=== PATIENT | female | born 1985 | race Caucasian/White ===

== ENCOUNTER 2016-06-08 13:31 | Emergency (ER) | payer OTHER ==
[~2016-06-08 13:31] MED LIST: BACLOFEN10 MG PO; IBUPROFEN100 MG PO; LIORESAL TAB 1010 MG PO; NEURONTIN600 MG PO; NORCO 10-325 T1 EACH PO
== END 2016-06-08 15:30 | disposition home or self-care (01) ==
LOC: ER1 13:31
DX: S93.612A Sprain of tarsal ligament of left foot, initial encounter (principal); F17.210 Nicotine dependence, cigarettes, uncomplicated; W19.XXXA Unspecified fall, initial encounter; Y92.009 Unspecified place in unspecified non-institutional (private) residence as the place of occurrence of the external cause
CPT/HCPCS: 29515; 73610; 73630; 99283

== ENCOUNTER → 2016-06-20 | Outpatient (CLI) | payer OTHER ==
[~2016-06-20] MED LIST changes: +CLEOCIN HCL300 MG PO; +EFFEXOR XR75 MG PO; +HABITROL 21 MG P1 EA TD; +IBUPROFEN800 MG PO; +KLONOPIN TAB 00.5 MG PO; +MS CONTIN15 MG PO; +NICOTROL10 MG TD; +PERCOCET 10-321 EACH PO; +SEROQUEL100 MG PO; +VITAMIN C 500500 MG PO; +VITAMIN D350000 UNIT PO
== END ==
LOC: KOH-I 06-16 08:30
DX: M84.375A Stress fracture, left foot, initial encounter for fracture (principal); S92.342A Displaced fracture of fourth metatarsal bone, left foot, initial encounter for closed fracture; S92.332A Displaced fracture of third metatarsal bone, left foot, initial encounter for closed fracture; S92.322A Displaced fracture of second metatarsal bone, left foot, initial encounter for closed fracture; S92.252A Displaced fracture of navicular [scaphoid] of left foot, initial encounter for closed fracture; S92.242A Displaced fracture of medial cuneiform of left foot, initial encounter for closed fracture
CPT/HCPCS: 73700

== ENCOUNTER 2016-07-04 16:07 | Emergency (ER) | payer OTHER ==
[~2016-07-04 16:07] MED LIST changes: -CLEOCIN HCL300 MG PO; -EFFEXOR XR75 MG PO; -HABITROL 21 MG P1 EA TD; -IBUPROFEN800 MG PO; -KLONOPIN TAB 00.5 MG PO; -MS CONTIN15 MG PO; -NICOTROL10 MG TD; -PERCOCET 10-321 EACH PO; -SEROQUEL100 MG PO; -VITAMIN C 500500 MG PO; -VITAMIN D350000 UNIT PO
== END 2016-07-04 20:35 | disposition home or self-care (01) ==
LOC: ER1 16:07
DX: S92.242A Displaced fracture of medial cuneiform of left foot, initial encounter for closed fracture (principal); S92.252A Displaced fracture of navicular [scaphoid] of left foot, initial encounter for closed fracture; S92.322A Displaced fracture of second metatarsal bone, left foot, initial encounter for closed fracture; S92.332A Displaced fracture of third metatarsal bone, left foot, initial encounter for closed fracture; S92.342A Displaced fracture of fourth metatarsal bone, left foot, initial encounter for closed fracture; S92.352A Displaced fracture of fifth metatarsal bone, left foot, initial encounter for closed fracture; F17.200 Nicotine dependence, unspecified, uncomplicated; W19.XXXA Unspecified fall, initial encounter; Z79.891 Long term (current) use of opiate analgesic
CPT/HCPCS: 73700; 96372; 99283

== ENCOUNTER → 2016-08-09 | Outpatient (CLI) | payer OTHER ==
[~2016-08-09] MED LIST changes: +CLEOCIN HCL300 MG PO; +EFFEXOR XR75 MG PO; +HABITROL 21 MG P1 EA TD; +IBUPROFEN800 MG PO; +KLONOPIN TAB 00.5 MG PO; +MS CONTIN15 MG PO; +NICOTROL10 MG TD; +PERCOCET 10-321 EACH PO; +SEROQUEL100 MG PO; +VITAMIN C 500500 MG PO; +VITAMIN D350000 UNIT PO
[2016-08-09 10:53] LABS: HEMOGLOBIN 14.3 gm/dl (12.3-15.3); RED BLOOD COUNT 5.06 M/UL (4.00-5.10); WHITE BLOOD COUNT 5.8 K/UL (4.5-11.0)
[2016-08-09 11:04] LABS: BUN/CREATININE RATIO 8 (0-10)
== END ==
LOC: OPSV2 09:57
PROVIDERS: Podiatrist Foot & Ankle Surgery
DX: Z01.812 Encounter for preprocedural laboratory examination (principal); S92.302A Fracture of unspecified metatarsal bone(s), left foot, initial encounter for closed fracture
CPT/HCPCS: 36415; 80048; 85027

== ENCOUNTER 2016-08-12 08:00 | Day surgery (SDC) | payer OTHER ==
[~2016-08-12] VITALS: Ht 172.7 cm; Wt 100.7 kg
[~2016-08-12 08:00] MED LIST changes: -CLEOCIN HCL300 MG PO; -EFFEXOR XR75 MG PO; -HABITROL 21 MG P1 EA TD; -IBUPROFEN800 MG PO; -KLONOPIN TAB 00.5 MG PO; -MS CONTIN15 MG PO; -NICOTROL10 MG TD; -PERCOCET 10-321 EACH PO; -SEROQUEL100 MG PO; -VITAMIN C 500500 MG PO; -VITAMIN D350000 UNIT PO
[2016-08-12] MEDS ORDERED: SEROQUEL100 MG PO (09:22)
[2016-08-12] MEDS ORDERED: KLONOPIN TAB 00.5 MG PO (09:22)
[2016-08-12] MEDS ORDERED: EFFEXOR XR75 MG PO (09:23)
[2016-08-13 06:47] LABS: BUN/CREATININE RATIO 8 (0-10)
[2016-08-13 06:57] LABS: RED BLOOD COUNT 4.21 M/UL (4.00-5.10); WHITE BLOOD COUNT 8.2 K/UL (4.5-11.0)
[2016-08-13 06:58] LABS: HEMOGLOBIN 11.9 gm/dl (12.3-15.3)
[2016-08-13] MEDS ORDERED: MS CONTIN15 MG PO (17:14)
[2016-08-13] MEDS ORDERED: PERCOCET 10-321 EACH PO (17:16)
[2016-08-13] MEDS ORDERED: NICOTROL10 MG TD (17:19)
[2016-08-13] MEDS ORDERED: VITAMIN C 500500 MG PO (17:20)
[2016-08-13] MEDS ORDERED: IBUPROFEN800 MG PO (17:20)
[2016-08-13] MEDS ORDERED: VITAMIN D350000 UNIT PO (17:23)
[2016-08-13] MEDS ORDERED: CLEOCIN HCL300 MG PO (17:24)
[2016-08-13] MEDS ORDERED: HABITROL 21 MG P1 EA TD (18:29)
== END 2016-08-13 19:40 | disposition home or self-care (01) ==
LOC: OR 08:00 → M/S 15:19 → OR 08-13 19:40
PROVIDERS: Podiatrist Foot & Ankle Surgery
PROC: 0SS Lower Joints, Reposition (ICD-10-PCS; 2016-08-12)
PROC: 0QSP04Z Reposition Left Metatarsal with Internal Fixation Device, Open Approach (ICD-10-PCS; principal; 2016-08-12 09:00)
DX: S92.312A Displaced fracture of first metatarsal bone, left foot, initial encounter for closed fracture (principal); S92.322A Displaced fracture of second metatarsal bone, left foot, initial encounter for closed fracture; S92.332A Displaced fracture of third metatarsal bone, left foot, initial encounter for closed fracture; S92.342A Displaced fracture of fourth metatarsal bone, left foot, initial encounter for closed fracture; F41.9 Anxiety disorder, unspecified; F32.9 Major depressive disorder, single episode, unspecified; F17.210 Nicotine dependence, cigarettes, uncomplicated; Z82.49 Family history of ischemic heart disease and other diseases of the circulatory system; Z83.3 Family history of diabetes mellitus; Z79.1 Long term (current) use of non-steroidal anti-inflammatories (NSAID); Z79.891 Long term (current) use of opiate analgesic; Z79.899 Other long term (current) drug therapy; Z98.84 Bariatric surgery status; Z98.890 Other specified postprocedural states; X58.XXXA Exposure to other specified factors, initial encounter
CPT/HCPCS: 36415; 73630; 76000; 80048; 84703; 85027; C1713; J0690; J1100; J1650; J1885; J2250; J2270; J2405; J2795; J3370; J7120

== ENCOUNTER → 2020-12-14 | Outpatient (CLI) | payer OTHER ==
[~2020-12-14] MED LIST changes: +CLEOCIN HCL300 MG PO; +EFFEXOR XR75 MG PO; +HABITROL 21 MG P1 EA TD; +IBUPROFEN800 MG PO; +KLONOPIN TAB 00.5 MG PO; +MS CONTIN15 MG PO; +NICOTROL10 MG TD; +PERCOCET 10-321 EACH PO; +SEROQUEL100 MG PO; +VITAMIN C 500500 MG PO; +VITAMIN D350000 UNIT PO
== END ==
LOC: KOH-I 09:23
DX: M79.672 Pain in left foot (principal)
CPT/HCPCS: 73630